=== PATIENT | female | born 1935 | race Caucasian/White ===

== ENCOUNTER 2018-10-17 16:35 | Emergency (ER) | payer OTHER ==
--- NOTE | 2018-10-17 17:01 | ED Physician Documentation ---
Fall - HISTORIAN Historian: patient, spouse - HPI Chief Complaint: Fall Additional Information: trippedd fell a[facility] W/ LT HIP(TROCANTERIC PAIN) Onset: hours (1) Context: tripped r: moderate Associated Symptoms:: no loss of consciousness Location of Pain/Injury: denies: head, neck, face, lower back, upper extremity Injury to Left Extremity: hip - ROS CONST: no problems. denies: recent illness, fever, sweating, weakness, chills NEURO: denies: dizziness, anxiety, depression MS/SKIN/LYMPH: denies: weakness, numbness, neck pain, back pain, ankle swelling, leg swelling EYES/ENT: none CVS/RESP: none GI/: denies: problems urinating, nausea, vomiting - PAST HX Past History: other (HTN) Immunizations: UTD Allergies/Adverse Reactions: Allergies Allergy/AdvReac Type Severity Reaction Status Date / Time allopurinol Allergy Verified 10/17/18 18:17 Penicillins Allergy Verified 10/17/18 18:17 Sulfa (Sulfonamide Allergy Verified 10/17/18 18:16 Antibiotics) - SOCIAL HX Smoking History: non-smoker Alcohol Use: none Drug Use: none - FAMILY HX Family History: no significant history - REVIEWED ASSESSMENTS Nursing Assessment Reviewed: Yes Vitals Reviewed: Yes ED Results Lab/Radiology - Radiology Radiology Impressions: subcapital lt hip fracture.sub capital lt hip fracture - Orders Orders: ED Orders Category Date Time Status LT HIP 2VIEW COMPLETE [RAD] Stat Exams 10/17/18 Ordered Fall Physical Exam - Physical Exam General Appearance: alert, mild distress. No: lethargic Head: non-tender, no swelling, no obvious injury Neck: non-tender, painless ROM ENT: nml external inspection Resp/CVS: chest non-tender, no ecchymosis, breath sounds nml, no resp. distress, heart sounds nml, tachycardia. No: rib tenderness, subcutaneous emphysema Abdomen: non-tender Neuro: oriented x3, sensation nml, motor nml, mood/affect nml Skin: color nml, no rash. No: cyanosis, diaphoresis, pallor, ecchymosis Extremities: other (LT HIP TENDER EPI TROCANTERIC AREA) - [place] Coma Score Eyes Open: Spontaneous Speech: Oriented Motor: Obeys Commands Discharge Clincal Impression: lt subcapital hip fracture Referrals: Primary Doctor,No [Primary Care Provider] - 2 Days Comments: pt refuses ambulance will go by pvt auto-she has walked on the fractured side' she desired no meds xc toradol. she is tranasferred to [facility] to ed DR FERRELL. DR KING ORTHOPEDIC SURGEON WANted pt to go through ED Condition: Good Disposition: 02 XFER SHT-TRM HOSP Decision to Admit: NO Decision Time: 19:47
--- NOTE | 2018-10-17 17:38 | Diagnostic Imaging Report ---
JELENA WALLACE [facility] [address] [facility].[address] [id number] Report Submission Date: Oct 17, 2018 5:30:42 PM KENO MANAGER Patient Study Name: EMANUEL FINNEY Date: Oct 17, 2018 4:58:44 PM KENO MANAGER Modality Type: DX Gender: F Description: PELVIS : 39 Institution: [facility] Physician: JELENA WALLACE Left hip 2 views Technique AP and frog leg Findings: There is a subcapital fracture of this left femoral neck with about centimeter of medial displacement. Pubic rami appear intact Electronically signed on Oct 17, 2018 5:30:42 PM KENO MANAGER by: Dar SMITH
[2018-10-17] MEDS ORDERED: KETOROLAC TROMETHAMINE 60 MG/2 ML VIAL IM ONE (19:09)
[2018-10-17 20:39] VITALS: BP 193/78
== END 2018-10-17 20:00 | disposition short-term general hospital (02) ==
LOC: ED 16:35
DX: S72.012A Unspecified intracapsular fracture of left femur, initial encounter for closed fracture (principal); W01.0XXA Fall on same level from slipping, tripping and stumbling without subsequent striking against object, initial encounter; Y93.01 Activity, walking, marching and hiking; Y92.59 Other trade areas as the place of occurrence of the external cause
CPT/HCPCS: 73502; 96372; 99285; J1885